=== PATIENT | male | born 1960 | race Caucasian/White ===

== ENCOUNTER 2019-09-03 09:51 | Emergency (ER) | payer OTHER ==
[~2019-09-03] VITALS: Ht 172.7 cm; Wt 184.8 kg
[~2019-09-03 09:51] MED LIST: AMLO5TAB9 PO; APIX5TAB PO; ASPI81 PO; DSS100 PO; FURO40 PO; INSU100C14 SQ; NYST30CR9 TP; SERT100T12 PO
[2019-09-03] MEDS ORDERED: CHOLESTEROL MED PO (10:37)
[2019-09-03] MEDS ORDERED: [UNRECOGNIZED DRUG - REMARK] PO (10:37)
[2019-09-03 10:38] LABS: GLUCOSE,POINT OF CARE 473 MG/DL (70-110)
[2019-09-03 10:55] LABS: HEMOGLOBIN 15.3 g/dL (13.5-17.5); LYMPHOCYTES # (AUTO) 0.9 K/uL (1.0-4.8); LYMPHOCYTES % (AUTO) 11.4 % (22.0-44.0); MEAN CORPUSCULAR HEMOGLOBIN 31.2 pg (26.0-34.0); MEAN CORPUSCULAR HGB CONC 34.7 G/dL (31.0-37.0); MEAN CORPUSCULAR VOLUME 90 fL (80-100); MONOCYTES # (AUTO) 0.5 K/uL (0.1-1.0); MONOCYTES % (AUTO) 5.6 % (2.0-9.0); NEUTROPHILS # (AUTO) 6.6 K/uL (1.8-7.7); PLATELET COUNT (AUTO) 145 K/uL (150-450); RED CELL DISTRIBUTION WIDTH 14.1 % (11.5-14.5)
[2019-09-03 11:12] LABS: ALBUMIN 3.1 g/dL (3.4-5.0); BILIRUBIN,TOTAL 0.7 mg/dL (0.1-1.0); CALCIUM, TOTAL 8.8 mg/dL (8.8-10.5); CREATININE 1.54 mg/dL (0.60-1.30); POTASSIUM 4.5 mmol/L (3.5-5.1); TOTAL PROTEIN, SERUM 7.2 g/dL (6.4-8.2)
[2019-09-03] MEDS ORDERED: INSULIN REGULAR, HUMAN 100 UNITS/ML IVP ONE (11:15)
[2019-09-03] MEDS ORDERED: APIXABAN 5 MG TABLET PO ONE (13:30)
[2019-09-03 14:13] LABS: GLUCOSE,POINT OF CARE 318 MG/DL (70-110)
[2019-09-03 14:31] VITALS: BP 135/72
== END 2019-09-03 14:51 | disposition home or self-care (01) ==
LOC: EMS 09:53
DX: I82.401 Acute embolism and thrombosis of unspecified deep veins of right lower extremity (principal); I48.91 Unspecified atrial fibrillation; E11.65 Type 2 diabetes mellitus with hyperglycemia; E78.00 Pure hypercholesterolemia, unspecified; I10 Essential (primary) hypertension; F41.9 Anxiety disorder, unspecified; F32.9 Major depressive disorder, single episode, unspecified; Z79.82 Long term (current) use of aspirin; Z79.4 Long term (current) use of insulin; Z79.899 Other long term (current) drug therapy; Z98.890 Other specified postprocedural states; Z88.8 Allergy status to other drugs, medicaments and biological substances; W18.39XA Other fall on same level, initial encounter; Y93.01 Activity, walking, marching and hiking; Y92.89 Other specified places as the place of occurrence of the external cause; Y99.8 Other external cause status
CPT/HCPCS: 36415; 71045; 80053; 82550; 82962; 83880; 84484; 85025; 93005; 93970; 96374; 99285; J1815

== ENCOUNTER 2020-02-24 18:43 | Emergency (ER) | payer OTHER ==
[~2020-02-24] VITALS: Ht 188 cm; Wt 181.8 kg
[~2020-02-24 18:43] MED LIST changes: -APIX5TAB PO; +ASPI-728 PO; -ASPI81 PO; +CHOLESTEROL MED PO; -DSS100 PO; +[UNRECOGNIZED DRUG - REMARK] PO
[2020-02-24] MEDS ORDERED: DEXTROSE 50%-WATER 25 GM/50 ML SYRINGE IVP ONE (19:30)
[2020-02-24] MEDS ORDERED: INSU500V SQ (19:31)
[2020-02-24] MEDS ORDERED: APIX5TAB PO (19:31)
[2020-02-24] MEDS ORDERED: TAMS-13 PO (19:31)
[2020-02-24] MEDS ORDERED: CALC0.5C PO (19:31)
[2020-02-24] MEDS ORDERED: FAMO20 PO (19:31)
[2020-02-24] MEDS ORDERED: SIMV-260 PO (19:31)
[2020-02-24] MEDS ORDERED: FINA-27 PO (19:31)
[2020-02-24] MEDS ORDERED: FLUT16H NASAL (19:31)
[2020-02-24 19:36] LABS: BASOPHILS % (AUTO) 0.6 % (0.0-2.0); EOSINOPHILS % (AUTO) 1.1 % (1.0-6.0); HEMATOCRIT 42.5 % (41-53); HEMOGLOBIN 14.9 g/dL (13.5-17.5); LYMPHOCYTES # (AUTO) 2.1 K/uL (1.0-4.8); LYMPHOCYTES % (AUTO) 18.4 % (22.0-44.0); MEAN CORPUSCULAR HEMOGLOBIN 29.9 pg (26.0-34.0); MEAN CORPUSCULAR HGB CONC 35.1 G/dL (31.0-37.0); MEAN CORPUSCULAR VOLUME 85 fL (80-100); MONOCYTES # (AUTO) 0.7 K/uL (0.1-1.0); MONOCYTES % (AUTO) 6.4 % (2.0-9.0); NEUTROPHILS # (AUTO) 8.6 K/uL (1.8-7.7); NEUTROPHILS % (AUTO) 73.5 % (40.0-70.0); PLATELET COUNT (AUTO) 199 K/uL (150-450); RED BLOOD CELL COUNT(AUTO) 4.98 MIL/uL (4.50-5.90); RED CELL DISTRIBUTION WIDTH 14.5 % (11.5-14.5)
[2020-02-24] MEDS ORDERED: ASPI-1111 PO (19:39)
[2020-02-24] MEDS ORDERED: CALC25 PO (19:39)
[2020-02-24 19:49] LABS: CALCIUM, TOTAL 8.9 mg/dL (8.8-10.5); CREATININE 1.28 mg/dL (0.60-1.30); POTASSIUM 3.4 mmol/L (3.5-5.1)
[2020-02-24 19:54] LABS: ALBUMIN 3.2 g/dL (3.4-5.0); BILIRUBIN,TOTAL 0.4 mg/dL (0.1-1.0); TOTAL PROTEIN, SERUM 7.7 g/dL (6.4-8.2)
[2020-02-24 20:55] LABS: GLUCOSE,POINT OF CARE 165 MG/DL (70-110)
[2020-02-24 21:00] VITALS: BP 148/75
[2020-02-24 21:56] LABS: GLUCOSE,POINT OF CARE 133 MG/DL (70-110)
== END 2020-02-24 22:49 | disposition home or self-care (01) ==
LOC: EMS 18:44
DX: E11.649 Type 2 diabetes mellitus with hypoglycemia without coma (principal); I10 Essential (primary) hypertension; E78.00 Pure hypercholesterolemia, unspecified; F41.9 Anxiety disorder, unspecified; F32.9 Major depressive disorder, single episode, unspecified; Z79.84 Long term (current) use of oral hypoglycemic drugs; Z79.899 Other long term (current) drug therapy
CPT/HCPCS: 82948; 93005; 96374

== ENCOUNTER 2020-05-11 06:19 | Emergency (ER) | payer OTHER ==
[~2020-05-11] VITALS: Ht 188 cm; Wt 117.3 kg
[~2020-05-11 06:19] MED LIST changes: +AMLO-257 PO; -AMLO5TAB9 PO; +APIX5TAB PO; +ASPI-1111 PO; -ASPI-728 PO; +ASPI81TA87 PO; +CALC25 PO; -CHOLESTEROL MED PO; +FAMO20 PO; +FINA-27 PO; +FINA5TAB41 PO; +FLUT16H NASAL; -INSU100C14 SQ; +INSU500V SQ; +LACT1POW8 MC; +METF-960 PO; +SERT50TA12 PO; +SIMV-260 PO; +TAMS-13 PO; +VANC125C6 PO; -[UNRECOGNIZED DRUG - REMARK] PO
[2020-05-11 07:01] LABS: GLUCOSE,POINT OF CARE 252 MG/DL (70-110)
[2020-05-11] MEDS ORDERED: PENICILLIN G BENZATHINE LA 1,200,000 UNITS/2 ML SYRINGE IM ONE (08:15)
[2020-05-11 08:34] VITALS: BP 157/88
== END 2020-05-11 08:51 | disposition home or self-care (01) ==
LOC: EMS 06:19
DX: S61.001A Unspecified open wound of right thumb without damage to nail, initial encounter (principal); J02.0 Streptococcal pharyngitis; E11.65 Type 2 diabetes mellitus with hyperglycemia; I10 Essential (primary) hypertension; E78.00 Pure hypercholesterolemia, unspecified; F32.9 Major depressive disorder, single episode, unspecified; Z79.82 Long term (current) use of aspirin; Z79.4 Long term (current) use of insulin; Z79.899 Other long term (current) drug therapy; X58.XXXA Exposure to other specified factors, initial encounter; Y93.89 Activity, other specified; Y92.89 Other specified places as the place of occurrence of the external cause; Y99.8 Other external cause status
CPT/HCPCS: 82962; 87430; 96372; 99283; J0561; 82948